=== PATIENT | male | born 1970 | race American Indian/Alaskan Native ===

== ENCOUNTER 2020-10-26 09:32 | Emergency (ER) | payer SELFPAY ==
[~2020-10-26 09:32] MED LIST: DEXTROSE 50% IN WATER (25GM) 50 ML SYRINGE IV ONE; EPINEPHrine 1 MG/10 ML SYRINGE ONE
--- NOTE | 2020-10-26 10:56 | Emergency Department Report ---
ED CPR HPI - General Chief Complaint: Cardiac Arrest/CPR Stated Complaint: CARDIAC ARREST Time Seen by Provider: 10/26/20 09:32 Source: patient, EMS Mode of arrival: Stretcher Limitations: Other - History of Present Illness Initial Comments: 50-year-old male with a history of CAD/IL and hypertension, and obesity presents to the hospital status post cardiopulmonary arrest. Patient was last seen normal at 5 AM by family members. Patient was found in his vehicle outside of his job unresponsive. Patient was taking out of the vehicle and administered bystander CPR. EMS arrived to scene and 9 AM. Patient did receive 1 round of defibrillation for V. fib but then deteriorated to asystole. Patient received epinephrine x5, 1 amp of sodium bicarb, 1 amp of glucose for a D stick in the 30s, and IO and IV placement in, and Jason airway placement prior to arrival. Despite resuscitation efforts patient remains in asystole with fixed pupils upon arrival. Resuscitation efforts continued upon arrival - Related Data Allergies Allergy/AdvReac Type Severity Reaction Status Date / Time Unable to Assess Allergy Unverified 10/26/20 09:43 ED Review of Systems ROS: Stated complaint: CARDIAC ARREST Other details as noted in HPI Comment: All other systems reviewed and negative ED Physical Exam - General Limitations: Other - Other Other exam information: General: Unresponsive Head: Atraumatic, very cold to touch Eyes: normal appearance, fixed and dilated pupil ENT: Orally intubated with a Jason airway Neck: Normal appearance Chest: Apneic, breath sounds with bag CV: Pulseless Abdomen: Soft, nondistended Back: Normal inspection Extremity: Normal inspection, right leg IO Neuro: GCS equals 3 no spontaneous movement Psych: Unresponsive ED Medical Decision Making - Medical Decision Making Patient remains apneic in asystole upon arrival. Patient received additional amp of D50, 1 amp of epinephrine and continued chest compressions and by about mask ventilations/oxygenation. Patient remains in asystole fixed and dilated pupils with glucose in the 60s. Core temperature warm. Time of 9:31 AM Patient's father came to the ED and was informed of his son's in person Critical Care Time: Yes Critical care time in (mins) excluding proc time.: 20 Critical care attestation.: If time is entered above; I have spent that time in minutes in the direct care of this critically ill patient, excluding procedure time. ED Disposition Clinical Impression: Cardiopulmonary arrest Disposition: DC-20 Is pt being admited?: No Does the pt Need Aspirin: No Condition: Critical Time of Disposition: 11:30
== END 2020-10-26 12:23 ==
LOC: ED 09:32
DX: I46.9 Cardiac arrest, cause unspecified (principal); I10 Essential (primary) hypertension; I25.2 Old myocardial infarction; E66.9 Obesity, unspecified
CPT/HCPCS: 92950; 99291; J0171